=== PATIENT | male | born 1985 | race Asian ===

== ENCOUNTER 2016-10-25 09:29 | Emergency (ER) | payer OTHER ==
[2016-10-25 09:34] VITALS: O2SAT 97
--- NOTE | 2016-10-25 10:05 | CPEKG ---
Heart Rate: 65 RR Interval: 923 P-R Interval: 184 QRSD Interval: 102 QT Interval: 404 QTC Interval: 421 P [place]: 78 QRS [place]: 94 T Wave [place]: 35 EKG Severity - OTHERWISE NORMAL ECG - EKG Impression: SINUS RHYTHM EKG Impression: BORDERLINE RIGHT AXIS DEVIATION EKG Impression: mild diffuse ST elevation versus. Depression Electronically Signed By: Franklin King 25-Oct-2016 10:48:05
[2016-10-25] MEDS ORDERED: NS 1,000 ML IV ONE (10:15)
--- NOTE | 2016-10-25 10:15 | EDPHY ---
H & P Stated Complaint: Left chest pain with breathing. Time Seen by Provider: 10/25/16 09:56 HPI/ROS: CHIEF COMPLAINT: Chest discomfort HISTORY OF PRESENT ILLNESS: Patient is a 31-year-old man from [place] here for his post Doctorate. He comes to the emergency department complaining of left- sided chest/epigastric discomfort yesterday morning and this morning. It seemed to resolve throughout the day. He states that he has been stressed at work and has not been sleeping well for the last few months. He does not associated symptoms with food or movement. It does feel better with exercise. He denies shortness of breath. He did have some mild nausea this morning as well as anxiety. His symptoms have completely resolved the time he arrived to the emergency department. His pain does seem to worsen when he lays flat. REVIEW OF SYSTEMS: Constitutional: denies: chills, fever, recent illness, recent injury EENTM: denies: blurred vision, double vision, nose congestion Respiratory: denies: cough, shortness of breath Cardiac: See HPI Gastrointestinal/Abdominal: denies: abdominal pain, diarrhea, nausea, vomiting, blood streaked stools Genitourinary: denies: dysuria, frequency, hematuria, pain Musculoskeletal: denies: joint pain, muscle pain Skin: denies: lesions, rash, jaundice, bruising Neurological: denies: headache, numbness, paresthesia, tingling, dizziness, weakness Hematologic/Lymphatic: denies: blood clots, easy bleeding, easy bruising Immunologic/allergic: denies: HIV/AIDS, transplant EXAM: GENERAL: Well-appearing, well-nourished and in no acute distress. HEAD: Atraumatic, normocephalic. EYES: Pupils equal round and reactive to light, extraocular movements intact, sclera anicteric, conjunctiva are normal. ENT: TMs normal, nares patent, oropharynx clear without exudates. Moist mucous membranes. NECK: Normal range of motion, supple without lymphadenopathy or JVD. LUNGS: Breath sounds clear to auscultation bilaterally and equal. No wheezes rales or rhonchi. HEART: Regular rate and rhythm without murmurs, rubs or gallops. ABDOMEN: Soft, nontender, normoactive bowel sounds. No guarding, no rebound. No masses appreciated. BACK: No CVA tenderness, no spinal tenderness, step-offs or deformities EXTREMITIES: Normal range of motion, no pitting or edema. No clubbing or cyanosis. NEUROLOGICAL: Cranial nerves II through XII grossly intact. Normal speech, normal gait. 5/5 strength, normal movement in all extremities, normal sensation PSYCH: Normal mood, normal affect. SKIN: Warm, dry, normal turgor, no visible rashes or lesions. Source: Patient Exam Limitations: No limitations - Personal History Current Tetanus Diphtheria and Acellular Pertussis (TDAP): Unsure - Medical/Surgical History Hx Asthma: No Hx Chronic Respiratory Disease: No Hx Diabetes: No Hx Cardiac Disease: No Hx Renal Disease: No Hx Cirrhosis: No Hx Alcoholism: No Hx HIV/AIDS: No Hx Splenectomy or Spleen Trauma: No Other PMH: Denies - Family History Significant Family History: No pertinent family hx - Social History Smoking Status: Never smoked Alcohol Use: None Drug Use: None Constitutional: Initial Vital Signs Temperature (C) 36.4 C 10/25/16 09:31 Heart Rate 61 10/25/16 09:31 Respiratory Rate 16 10/25/16 09:31 Blood Pressure 127/77 H 10/25/16 09:31 O2 Sat (%) 97 10/25/16 09:31 O2 Delivery Mode Room Air Allergies/Adverse Reactions: No Known Allergies Allergy (Unverified 10/25/16 09:34) Home Medications: Medication Instructions Recorded Colchicine 0.6 mg PO BID #30 capsule 10/25/16 Ibuprofen 600 mg PO TID PRN #30 tablet 10/25/16 Medical Decision Making - Diagnostics EKG Interpretation: An EKG obtained and was read and documented in trace view. Please see trace view for full reading and report. Sinus rhythm, mild diffuse ST elevation versus KS depression ED Course/Re-evaluation: We performed an echocardiogram here in the emergency department. Dry read is completely normal. Patient's troponin is negative. His symptoms have resolved. Will treat him with ibuprofen for pericarditis and have him follow up with the Cardiology group. He understands and agrees with this plan. He declines further workup or testing at this time. Additional verbal discharge instructions given. Differential Diagnosis: Partial list of the Differential diagnosis considered include but were not limited to; pericarditis, GERD, anxiety, muscle pain and although unlikely based on the history and physical exam, I also considered PE, acute coronary disease, dissection, aneurysm. I discussed these differential diagnoses and the plan with the patient as well as the usual and expected course. The patient understands that the diagnosis is provisional and that in medicine we are not always correct and that further workup is often warranted. Usual and customary warnings were given. All of the patient's questions were answered. The patient was instructed to return to the emergency department should the symptoms at all worsen or return, otherwise to followup with the physician as we discussed. - Data Points Laboratory Results: Laboratory Results 10/25/16 10:25 10/25/16 10:25 10/25/16 10:25 WBC 8.90 10^3/uL (3.80-9.50) RBC 4.95 10^6/uL (4.40-6.38) Hgb 15.1 g/dL (13.7-17.5) Hct 44.6 % (40.0-51.0) MCV 90.1 fL (81.5-99.8) MCH 30.5 pg (27.9-34.1) MCHC 33.9 g/dL (32.4-36.7) RDW 12.4 % (11.5-15.2) Plt Count 241 10^3/uL (150-400) MPV 9.5 fL (8.7-11.7) Neut % (Auto) 74.9 H % (39.3-74.2) Lymph % (Auto) 15.3 % (15.0-45.0) [place] % (Auto) 7.8 % (4.5-13.0) Eos % (Auto) 1.3 % (0.6-7.6) Baso % (Auto) 0.4 % (0.3-1.7) Nucleat RBC Rel Count 0.0 % (0.0-0.2) Absolute Neuts (auto) 6.66 H 10^3/uL (1.70-6.50) Absolute Lymphs (auto) 1.36 10^3/uL (1.00-3.00) Absolute Monos (auto) 0.69 10^3/uL (0.30-0.80) Absolute Eos (auto) 0.12 10^3/uL (0.03-0.40) Absolute Basos (auto) 0.04 10^3/uL (0.02-0.10) Absolute Nucleated RBC 0.00 10^3/uL (0-0.01) Immature Gran % 0.3 % (0.0-1.1) Immature Gran # 0.03 10^3/uL (0.00-0.10) Sodium 144 mEq/L (134-144) Potassium 4.3 mEq/L (3.5-5.2) Chloride 105 mEq/L (97-110) Carbon Dioxide 26 mEq/l (22-31) Anion Gap 13 mEq/L (8-16) BUN 22 mg/dL (7-23) Creatinine 0.9 mg/dL (0.7-1.3) Estimated GFR > 60 Glucose 93 mg/dL (70-100) Calcium 9.1 mg/dL (8.5-10.4) Troponin I < 0.012 ng/mL (0-0.034) Medications Given: Discontinued Medications Sodium Chloride (Ns) 1,000 mls @ 0 mls/hr IV ONCE ONE PRN Reason: Wide Open Stop: 10/25/16 10:16 Last Admin: 10/25/16 10:15 Dose: 1,000 mls Departure - Departure Disposition: Home, Routine, Self-Care Clinical Impression: Pericarditis Qualifiers: Pericarditis type: unspecified type Chronicity: acute Qualifier Code: (I30.9) Acute pericarditis, unspecified Condition: Fair Instructions: Acute Pericarditis (ED) Referrals: NONE *PRIMARY CARE P,. [Primary Care Provider] - As per Instructions Gregory Claire MD [Medical Doctor] - As per Instructions Prescriptions: Colchicine 0.6 mg PO BID #30 capsule Ibuprofen 600 mg PO TID PRN #30 tablet PRN Reason: Pain, Moderate
[2016-10-25 10:36] LABS: % IMMATURE GRANULYOCYTES 0.3 % (0.0-1.1); ABSOLUTE IMMATURE GRANULOCYTES 0.03 10^3/uL (0.00-0.10); ADD DIFF? NO; ADD MORPH? NO; ADD SCAN? NO; ATYPICAL LYMPHOCYTE FLAG 0 (0-99); FRAGMENT RBC FLAG 0 (0-99); HEMATOCRIT 44.6 % (40.0-51.0); HEMOGLOBIN 15.1 g/dL (13.7-17.5); LEFT SHIFT FLG 0 (0-99); LIPEMIA HEMOLYSIS FLAG 90 (0-99); MEAN CELL HEMOGLOBIN 30.5 pg (27.9-34.1); MEAN CELL HEMOGLOBIN CONCENTR. 33.9 g/dL (32.4-36.7); MEAN CELL VOLUME 90.1 fL (81.5-99.8); MEAN PLATELET VOLUME 9.5 fL (8.7-11.7); PLATELET CLUMPS FLAG 10 (0-99); PLATELET COUNT 241 10^3/uL (150-400); RED BLOOD CELL COUNT 4.95 10^6/uL (4.40-6.38); RED CELL DISTRIBUTION WIDTH 12.4 % (11.5-15.2)
[2016-10-25 10:59] LABS: ANION GAP 13 mEq/L (8-16); CALCIUM 9.1 mg/dL (8.5-10.4); CARBON DIOXIDE 26 mEq/l (22-31); CHLORIDE 105 mEq/L (97-110); CREATININE 0.9 mg/dL (0.7-1.3); GLOMERULAR FILTRATION RATE > 60; GLUCOSE 93 mg/dL (70-100); POTASSIUM 4.3 mEq/L (3.5-5.2); SODIUM 144 mEq/L (134-144)
[2016-10-25 11:11] LABS: TROPONIN I < 0.012 ng/mL (0-0.034)
[2016-10-25 11:56] VITALS: BP 118/79; PULSE 59; RESP 14; TEMP 98.1
--- NOTE | 2016-10-25 12:34 | ECHO ---
[id number] + + [address] : : [place] [address] : : [phone] + Adult Echocardiographic Report + -+ :Name: YANELIS RAMIREZRamos Date: 10/25/2016 10:37 AM : : Hospital Admission Number: [id number] Location: E R: :: 1985 Gender: Male Height: 67 in : :Age: 31 yrs Race: Weight: 140 lb : :Reason For Study: Chest pain : : BSA: 1.7 meters2 : + -+ MMode/2D Measurements & Calculations IVSd: 0.86 cm LVIDd: 5.1 cm FS: 41.6 % Ao root diam: LVPWd: 0.89 cm LVIDs: 3.0 cm EDV(Teich): 3.5 cm 121.0 ml LA dimension: ESV(Teich): 2.9 cm 33.6 ml EF(Teich): 72.2 % LVLd ap4: 8.7 cm SV(MOD-sp4): EDV(MOD-sp4): 64.0 ml 94.0 ml LVLs ap4: 7.1 cm ESV(MOD-sp4): 30.0 ml EF(MOD-sp4): 68.1 % Normal Measurement Values: + + :LVIDd (3.5-5.7cm) IVSd (0.6-1.1cm) LVPWd (0.6-1.1cm) Aortic Root (2.0-3.7cm)Left Atrium (1.5-4.0cm): :LV Vol(d) (76-115ml) LV Vol(s) (29-48ml) Ejec Fraction (50-65%)PV [place] (0.6- 1.2m/s) TV [place] (0.4-1.0m/s) : :MV E [place] (0.8-1.0m/s)MV A [place] (0.3-1.0m/s)LVOT [place] (0.7-1.2m/s) Asc Ao [place] ( 0.9-1.8m/s) : + + Doppler Measurements & Calculations MV E max mustapha: 82.4 cm/sec Ao V2 max: 118.0 cm/sec TR max mustapha: 229.0 cm/sec MV A max mustapha: 47.4 cm/sec Ao max P.6 mmHg TR max P.0 mmHg MV E/A: 1.7 RAP systole: 5.0 mmHg RVSP(TR): 26.0 mmHg Left Ventricle The left ventricle is normal in size. There is normal left ventricular wall thickness. Left ventricular systolic function is normal. Ejection Fraction = 60-65%. No regional wall motion abnormalities noted. Right Ventricle The right ventricle is normal in size and function. Atria The left atrial size is normal. Right atrial size is normal. The interatrial septum is intact with no evidence for an atrial septal defect. Mitral Valve The mitral valve is normal in structure and function. There is no evidence of mitral valve prolapse. There is no mitral valve stenosis. There is trace mitral regurgitation. Tricuspid Valve Normal tricuspid valve. There is mild tricuspid regurgitation. Right ventricular systolic pressure is normal. Aortic Valve The aortic valve is trileaflet. The aortic valve opens well. There is no aortic stenosis. There is no aortic insufficiency. Pulmonic Valve The pulmonic valve is normal in structure and function. Trace pulmonic valvular regurgitation. Great Vessels The aortic root is normal size. Pericardium/Pleural There is no pericardial effusion. Conclusion A complete two-dimensional transthoracic echocardiogram was performed (2D, M-mode, Doppler and color flow Doppler). Left ventricular systolic function is normal. Ejection Fraction = 60-65%. There is trace mitral regurgitation. There is mild tricuspid regurgitation. Right ventricular systolic pressure is normal. Trace pulmonic valvular regurgitation. Final Reading Physician: Nicole Street signed on 10/25/2016 12:33 PM Ordering Physician: DAINA WARNER Performed By: Meg Robb, [facility]
== END 2016-10-25 11:56 | disposition home or self-care (01) ==
DX: I30.9 Acute pericarditis, unspecified (principal)